=== PATIENT | female | born 1985 | race African-American/Black ===

== ENCOUNTER 2016-06-19 20:35 | Emergency (ER) | payer OTHER ==
[2016-06-19 20:46] VITALS: BP 128/70; PULSE 139; TEMP 99; BMI 37.9
--- NOTE | 2016-06-19 20:54 | PDOC ---
History of Present Illness - History of Present Illness Initial Comments: 06/19/16 23:23 Patient is a 31 year old female (16 weeks) with significant medical hx of asthma who is presenting to the ED with vaginal bleeding and abdominal cramping for two days. The patient states that her bleeding is as heavy as her past menstrual periods but denies passing any clots. The patient reports she had to wear a pad today. She also endorses some associated abdominal cramping. Denies any fevers, chills, nausea, vomiting, diarrhea, dysuria, or hematuria. Patient was last seen by STRATEGIC DEVELOPMENT MANAGER on 06/15/16. OB/GYB: Kate Mckay MD LNMP: 03/13/16 <Radha Stern - Last Filed: 06/19/16 23:48> <Nicole Pereira - Last Filed: 06/20/16 02:44> - General Chief Complaint: Vaginal Bleeding Stated Complaint: VAGINAL BLEED Time Seen by Provider: 06/19/16 20:52 Past History <Radha Stern - Last Filed: 06/19/16 23:48> - Past Medical History Asthma: Yes Cancer: No Cardiac Disorders: No Diabetes: No HTN: No Seizures: No Thyroid Disease: No - Psycho/Social/Smoking Cessation Hx Suicidal Ideation: No Smoking Status: No Smoking History: Never smoked Have you smoked in the past 12 months: No Number of Cigarettes Smoked Daily: 0 Information on smoking cessation initiated: No Hx Alcohol Use: No Drug/Substance Use Hx: No Hx Substance Use Treatment: No <Nicole Pereira - Last Filed: 06/20/16 02:44> - Past Medical History Allergies/Adverse Reactions: Allergies Allergy/AdvReac Type Severity Reaction Status Date / Time No Known Allergies Allergy Verified 06/19/16 20:44 Home Medications: Ambulatory Orders Albuterol Sulfate Inhaler - [Ventolin HFA Inhaler -] 1 - 2 inh PO QID #1 inhaler 10/24/15 Review of Systems - Review of Systems Comments:: 06/19/16 23:23 CONSTITUTIONAL: Absent: fever, chills, diaphoresis, generalized weakness, malaise, loss of appetite HEENT: Absent: rhinorrhea, nasal congestion, throat pain, throat swelling, difficulty swallowing, mouth swelling, ear pain, eye pain, visual changes CARDIOVASCULAR: Absent: chest pain, syncope, palpitations, irregular heart rate, lightheadedness , peripheral edema RESPIRATORY: Absent: cough, shortness of breath, dyspnea with exertion, orthopnea, wheezing, stridor, hemoptysis GASTROINTESTINAL: Present: abdominal cramping Absent: abdominal distension, nausea, vomiting, diarrhea, constipation, melena, hematochezia GENITOURINARY: Present: vaginal bleeding Absent: dysuria, frequency, urgency, hesitancy, hematuria, flank pain, genital pain MUSCULOSKELETAL: Absent: myalgia, arthralgia, joint swelling SKIN: Absent: rash, itching, pallor HEMATOLOGIC/IMMUNOLOGIC: Absent: easy bleeding, easy bruising, lymphadenopathy, frequent infections ENDOCRINE: Absent: unexplained weight gain, unexplained weight loss, heat intolerance, cold intolerance NEUROLOGIC: Absent: headache, focal weakness or paresthesia, dizziness, unsteady gait, seizure, mental status changes, bladder or bowel incontinence. PSYCHIATRIC: Absent: anxiety, depression, suicidal or homicidal ideation, hallucinations <Radha Stern - Last Filed: 06/19/16 23:48> *Physical Exam - Vital Signs Last Vital Signs Temp Pulse Resp BP Pulse Ox 99 F 139 H 24 128/70 99 06/19/16 20:44 06/19/16 20:44 06/19/16 20:44 06/19/16 20:44 06/19/16 20:44 - Physical Exam Comments: 06/19/16 23:25 GENERAL: Well developed, well nourished. Awake and alert. No acute distress. HEENT: Normocephalic, atraumatic. PERRLA, EOMI. No conjunctival pallor. Sclera are non- icteric. Moist mucous membranes. Oropharynx is clear. NECK: Supple. Full ROM. No JVD. Carotid pulses 2+ and symmetric, without bruits. No thyromegaly. No lymphadenopathy. CARDIOVASCULAR: Regular rate and rhythm. No murmurs, rubs, or gallops. Distal pulses are 2+ and symmetric. PULMONARY: No evidence of respiratory distress. Lungs clear to auscultation bilaterally. No wheezing, rales or rhonchi. ABDOMINAL: Protuberant. Soft. Non-tender. Non-distended. No rebound or guarding. No organomegaly. Normoactive bowel sounds. MUSCULOSKELETAL: Normal range of motion at all joints. No bony deformities or tenderness. No CVA tenderness. EXTREMITIES: No cyanosis. No clubbing. No edema. No calf tenderness. SKIN: Warm and dry. Normal capillary refill. No rashes. No jaundice. NEUROLOGICAL: Alert, awake, appropriate. Cranial nerves 2-12 intact. Normal speech. Gait is normal without ataxia. PSYCHIATRIC: Cooperative. Good eye contact. Appropriate mood and affect. <Radha Stern - Last Filed: 06/19/16 23:48> - Vital Signs Last Vital Signs Temp Pulse Resp BP Pulse Ox 99 F 139 H 24 128/70 99 06/19/16 20:44 06/19/16 20:44 06/19/16 20:44 06/19/16 20:44 06/19/16 20:44 <Nicole Pereira - Last Filed: 06/20/16 02:44> ED Treatment Course - LABORATORY CBC & Chemistry Diagram: 06/19/16 21:15 - ADDITIONAL ORDERS Additional order review: Laboratory Results 06/19/16 21:15 Urine Color Ltyellow Urine Appearance Clear Urine pH 6.0 Ur Specific [place] 1.008 Urine Protein 1+ H Urine Glucose (UA) Negative Urine Ketones Negative Urine Blood 3+ H Urine Nitrite Negative Urine Bilirubin Negative Urine Urobilinogen Negative Ur Leukocyte Esterase Negative Urine RBC 186 Urine WBC 4 Ur Epithelial Cells Rare Urine Mucus Rare 06/19/16 21:15 RBC 3.49 L MCV 98.6 H MCHC 33.2 RDW 12.9 MPV 9.1 Neutrophils % 64.2 D Lymphocytes % 26.9 D Monocytes % 6.3 Eosinophils % 1.9 D Basophils % 0.7 D - RADIOLOGY Radiograph Interpretation: 06/19/16 23:48 Obstetrical US Impression: Single live intrauterine with average sonographic gestational age of 14 weeks 1 day. Posterior placenta covering the internal cervical os consistent with placenta previa. Close follow-up is needed. Reported By: Marixa Nichols MD <Radha Stern - Last Filed: 06/19/16 23:48> - LABORATORY CBC & Chemistry Diagram: 06/19/16 21:15 <Nicole Pereira - Last Filed: 06/20/16 02:44> Medical Decision Making - Medical Decision Making 06/20/16 02:43 40-year-old female who is , developed some vaginal bleeding. Ultrasound showed placenta previa with a single live intrauterine 14 weeks. heart tones 159 beats per minute Patient required program Plan she does have an appointment with Dr. Hartmann this week <Nicole Pereira - Last Filed: 06/20/16 02:44> *DC/Admit/Observation/Transfer - Attestations Scribe Attestion: 06/19/16 23:25 Documentation prepared by Radha Stern, acting as medical record specialist for Nicole Pereira MD. <Radha Stern - Last Filed: 06/19/16 23:48> <Nicole Pereira - Last Filed: 06/20/16 02:44> Diagnosis at time of Disposition: Placenta previa Qualifiers: Trimester: second trimester Qualified Code(s): O44.02 - Complete placenta previa NOS or without hemorrhage, second trimester - Discharge Dispostion Disposition: HOME Condition at time of disposition: Stable - Referrals Referrals: Kate Mckay MD [Staff Physician] - - Patient Instructions Printed Discharge Instructions: DI for Placenta Previa Additional Instructions: It is important to see your foreign exchange dealer this week Please call Dr Mckay and see if she can see you earlier than scheduled Bed rest
[2016-06-19 21:37] LABS: BASOPHIL 0.7 % (0-2.0); EOSINOPHIL 1.9 % (0-4.5); MCH 32.7 pg (25.7-33.7); MCHC 33.2 g/dl (32.0-36.0); MEAN CELL VOLUME 98.6 fl (80-96); MEAN PLT VOLUME 9.1 fl (7.5-11.1); NEUTROPHILS 64.2 % (42.8-82.8); PLATELET COUNT 198 K/MM3 (134-434); RDW 12.9 % (11.6-15.6); WHITE BLOOD COUNT 9.9 K/mm3 (4.0-10.0)
[2016-06-19 21:38] LABS: URINE APPEARANCE CLEAR; URINE BILIRUBIN NEGATIVE (NEGATIVE); URINE COLOR LTYELLOW; URINE GLUCOSE (UA) NEGATIVE (NEGATIVE); URINE KETONE NEGATIVE (NEGATIVE); URINE LEUK ESTERASE NEGATIVE (NEGATIVE); URINE NITRITE NEGATIVE (NEGATIVE); URINE UROBILINOGEN NEGATIVE E.U./dl (0.2-1.0)
[2016-06-19 22:20] LABS: URINE BLOOD 3+ (NEGATIVE); URINE PROTEIN 1+ (NEGATIVE)
[2016-06-19] MEDS ORDERED: RHO(D) IMMUNE GLOBULIN 1,500 UNIT DISP.SYRIN IM ONE (23:06)
[2016-06-19 23:14] LABS: URINE MUCUS RARE; URINE RBC 186 /hpf (0-3); URINE WBC 4 /hpf (3-5)
== END 2016-06-20 00:43 | disposition home or self-care (01) ==
LOC: JER 20:35
PROC: 3E0234Z Introduction of Serum, Toxoid and Vaccine into Muscle, Percutaneous Approach (ICD-10-PCS; principal; 2016-06-19)
DX: O44.12 Complete placenta previa with hemorrhage, second trimester (principal); Z3A.14 14 weeks gestation of pregnancy
CPT/HCPCS: 36415; 76816-TC; 81003; 81015; 85025; 86850; 86900; 86901; 86999; 96372; 99283-25; J1561

== ENCOUNTER 2016-12-15 23:55 | Inpatient (IN) | payer OTHER ==
[~2016-12-15 23:55] MED LIST: DEXTROSE 5%-LACTATED RINGERS 1,000 ML IV SCH
[2016-12-16] MEDS ORDERED: BUTORPHANOL TARTRATE 1 MG/ML VIAL IVPUSH PRN (01:01)
[2016-12-16] MEDS ORDERED: PROMETHAZINE HCL 25 MG/1 ML VIAL IVPUSH PRN (01:01)
[2016-12-16 01:08] LABS: INR 0.93 (0.82-1.09); PROTHROMBIN TIME (PATIENT) 10.5 SEC (9.98-11.88)
[2016-12-16 01:10] LABS: ACTIVATED PTT 28.6 SECONDS (26.9-34.4)
[2016-12-16 01:16] LABS: ANION GAP 10 (8-16); CO2 24 mmol/L (21-32); CREATININE 0.6 mg/dL (0.55-1.02); GLUCOSE,RANDOM 85 mg/dL (74-106)
[2016-12-16 01:39] LABS: HIV 1 & 2 AB NEGATIVE; HIV 1 AGp24 NEGATIVE
[2016-12-16 01:46] VITALS: BMI 40.1
[2016-12-16 01:50] LABS: BASOPHIL 0.3 % (0-2.0); MCH 32.1 pg (25.7-33.7); MCHC 33.6 g/dl (32.0-36.0); MEAN CELL VOLUME 95.6 fl (80-96); MEAN PLT VOLUME 9.2 fl (7.5-11.1); NEUTROPHILS 73.3 % (42.8-82.8); PLATELET COUNT 215 K/MM3 (134-434); RDW 13.5 % (11.6-15.6); WHITE BLOOD COUNT 11.4 K/mm3 (4.0-10.0)
--- NOTE | 2016-12-16 01:59 | HP ---
Past Medical History - Admission Chief Complaint: Labor pain History of Present Illness: 31 yo @ 39 weeks gestation admitted due to contractions pain. She denies any vaginal bleeding nor rupture of membrane. History Source: Patient Limitations to Obtaining History: No Limitations - Past Medical History ...: 4 ...Para: 2 ...Term: 2 ...: 0 ...Spon : 0 ...Induced : 1 ...LMP: 03/14/16 ... Weeks Gestation by Dates: 39.6 ...EDC by Dates: 12/19/16 ...EDC by Sono: 12/22/16 - Past Surgical History Past Surgical History: Yes: None Hx Myomectomy: No Hx Transabdominal Cerclage: No - Smoking History Smoking history: Former smoker Have you smoked in the past 12 months: Yes Aproximately how many cigarettes per day: 8 If you are a former smoker, when did you quit?: During 1st trimester of - Alcohol/Substance Use Hx Alcohol Use: No - Social History History of Recent Travel: No Home Medications - Allergies Allergies/Adverse Reactions: Allergies Allergy/AdvReac Type Severity Reaction Status Date / Time No Known Allergies Allergy Verified 12/10/16 23:34 - Home Medications Home Medications: Ambulatory Orders Albuterol Sulfate Inhaler - [Ventolin HFA Inhaler -] 1 puff PRN PRN 12/11/16 Family Disease History - Family Disease History Family History: Unremarkable Review of Systems - Review of Systems Constitutional: reports: No Symptoms Eyes: reports: No Symptoms HENT: reports: No Symptoms Neck: reports: No Symptoms Cardiovascular: reports: No Symptoms Respiratory: reports: No Symptoms Gastrointestinal: reports: No Symptoms Genitourinary: reports: Pain Breasts: reports: No Symptoms Reported Musculoskeletal: reports: No Symptoms Integumentary: reports: No Symptoms Neurological: reports: No Symptoms Endocrine: reports: No Symptoms Hematology/Lymphatic: reports: No Symptoms Psychiatric: reports: No Symptoms Pain Intensity: 4 Physical Exam - Maternity Vital Signs: Vital Signs Temperature 97.9 F 12/16/16 01:43 EDT Pulse Rate 86 12/16/16 01:43 EDT Respiratory Rate 20 12/16/16 01:43 EDT Blood Pressure 127/78 12/16/16 01:43 EDT O2 Sat by Pulse Oximetry (%) Constitutional: Yes: Well Nourished Eyes: Yes: WNL HENT: Yes: Atraumatic Neck: Yes: Supple Cardiovascular: Yes: Regular Rate and Rhythm Lungs: Clear to auscultation - Abdominal Exam/OB Number of Fetuses: Single Presentation: Vertex Contractions: Yes Regularity: Regular - Vaginal Exam/OB Station: -2 - Physical Exam Musculoskeletal: Yes: WNL Integumentary: Yes: WNL ...Motor Strength: WNL Psychiatric: Yes: Alert, Oriented - Labs Lab Results: CBC, BMP 12/16/16 01:20 EST Assessment/Plan IUP @ 39 weeks Pain in labor Anticipate
[2016-12-16] MEDS ORDERED: DEXTROSE 5%-LACTATED RINGERS 1,000 ML IV SCH (02:00)
[2016-12-16] MEDS ORDERED: BENZOCAINE 20% 57 GM BOTTLE TP PRN (05:13)
[2016-12-16] MEDS ORDERED: BENZOCAINE 28 GM HEMORRHOIDAL OINTMENT TP PRN (05:13)
[2016-12-16] MEDS ORDERED: METHYLERGONOVINE MALEATE 0.2 MG/1 ML AMP IM PRN (05:13)
[2016-12-16] MEDS ORDERED: WITCH HAZEL 50% (TUCKS) 40 PAD/JAR PAD TP PRN (05:13)
[2016-12-16] MEDS ORDERED: BISACODYL 10 MG SUPP.RECT RC PRN (05:13)
--- NOTE | 2016-12-16 05:23 | PN ---
Delivery - Delivery Vaginal Delivery: Spontaneous Episiotomy/Laceration: None EBL (cc): 300 Delivery, Single - Feeding Plan Initial Plan: Elected not to breastfeed exclusively throughout hospitalization Remarks - Remarks Remarks: Normal spontaneous vaginal delivery of a live infant girl over intact perineum. Nose / Oropharynx suctioned @ perineum. Cord clamped and cut. Placenta expelled spontaneously intact.
[2016-12-16] MEDS: ACETAMINOPHEN 325 MG TABLET (FP) PO PRN ×4 (06:15→21:42)
[2016-12-16] MEDS: IBUPROFEN 600 MG TABLET (FP) PO PRN ×4 (06:15→21:43)
[2016-12-16] MEDS: OXYTOCIN 20 UNITS in 0.9% NS 1,000 ML IV SCH ×2 (06:35→12:00)
[2016-12-16] MEDS ORDERED: TUBERCULIN PPD 5 TU/0.1ML SYRINGE (IN PATIENT USE ONLY) ID ONE (09:00)
[2016-12-16] MEDS: FERROUS SO4 325 MG TABLET (FP) PO SCH ×3 (09:09→16:55)
[2016-12-16] MEDS: PRENATAL VITAMINS W/ FOLIC ACID TABLET (FP) PO SCH (09:09)
[2016-12-17 07:40] LABS: BASOPHIL 0.7 % (0-2.0); MCH 32.2 pg (25.7-33.7); MCHC 33.7 g/dl (32.0-36.0); MEAN CELL VOLUME 95.7 fl (80-96); MEAN PLT VOLUME 8.5 fl (7.5-11.1); NEUTROPHILS 65.6 % (42.8-82.8); PLATELET COUNT 199 K/MM3 (134-434); RDW 13.3 % (11.6-15.6); WHITE BLOOD COUNT 11.3 K/mm3 (4.0-10.0)
--- NOTE | 2016-12-17 07:44 | PN ---
Post Note - Post Date of Delivery: 12/16/16 Vital Signs: Vital Signs - 24 hr 12/16/16 12/16/16 12/16/16 14:00 18:00 22:00 Temperature 97.7 F 97.6 F 97.7 F Pulse Rate 76 83 84 Respiratory 20 20 18 Rate Blood Pressure 139/92 131/84 123/78 12/17/16 12/17/16 02:00 05:53 Temperature 98.6 F 97.8 F Pulse Rate 71 67 Respiratory 18 18 Rate Blood Pressure 100/58 112/70 Labs: Laboratory Results - last 24 hr 12/16/16 12/16/16 01:20 EST 05:50 RPR Titer Nonreactive Screen Negative Baby's Blood Type O positive Unit Expiration Date - Subjective Subjective: No Complaints, Ambulating - Objective Breast: Not engorged Abdomen: Soft, Non-tender Uterus: Fundus firm Vagina: Scant lochia Extremities: Non-tender - Assessment/Plan (1) Vaginal delivery Assessment: S/P Normal Plan: Routine Care
[2016-12-17] MEDS: FERROUS SO4 325 MG TABLET (FP) PO SCH ×4 (08:58→16:34)
[2016-12-17] MEDS: PRENATAL VITAMINS W/ FOLIC ACID TABLET (FP) PO SCH (09:29)
[2016-12-17] MEDS ORDERED: FLU VACCINE QUAD 60 MCG/0.5 ML (MDV 17-18) IM ONE (10:00)
[2016-12-17] MEDS ORDERED: PNEUMOCOCCAL 23 VACCINE 0.5 ML VIAL IM ONE (10:00)
[2016-12-17] MEDS ORDERED: PNEUMOC 13-VAL CONJ-DIP CRM/PF 0.5 ML DISP.SYRIN IM ONE (10:00)
[2016-12-17] MEDS ORDERED: DIPHTH,PERTUSS(ACELL),TET 0.5 ML DISP.SYRIN IM ONE (10:00)
[2016-12-17] MEDS: ACETAMINOPHEN 325 MG TABLET (FP) PO PRN ×2 (16:59→22:59)
[2016-12-17] MEDS: IBUPROFEN 600 MG TABLET (FP) PO PRN ×2 (16:59→22:59)
[2016-12-17] MEDS ORDERED: SENNOSIDES/DOCUSATE COMBO (SENNA PLUS) TABLET (UD) PO PRN (22:00)
[2016-12-17 22:07] VITALS: PULSE 71
--- NOTE | 2016-12-18 08:28 | DS ---
Physical Exam-CLINICAL PHARMACY MANAGER Vital Signs: Vital Signs Temperature 97.9 F 12/17/16 22:00 Pulse Rate 71 12/17/16 22:00 Respiratory Rate 18 12/17/16 22:00 Blood Pressure 121/75 12/17/16 22:00 O2 Sat by Pulse Oximetry (%) 96 12/16/16 07:00 Constitutional: Yes: Well Nourished Eyes: Yes: Conjunctiva Clear HENT: Yes: Atraumatic Neck: Yes: Supple, Trachea Midline Cardiovascular: Yes: Regular Rate and Rhythm Respiratory: Yes: Regular, CTA Bilaterally Gastrointestinal: Yes: Normal Bowel Sounds Vaginal Exam: Yes: Normal Cervix: Yes: Normal Uterus: Yes: Firm ....Post : Yes: Uterus firm, Moderate lochia serosa Neurological: Yes: Alert, Oriented Psychiatric: Yes: Alert, Oriented Labs: CBC, BMP 12/17/16 05:45 Delivery - Delivery Vaginal Delivery: Spontaneous Type of Anesthesia: None Episiotomy/Laceration: None EBL (cc): 300 Delivery, Single - Stages of Labor Date 1st Stage Initiatied: 12/15/16 Time 1st Stage Initiated: 20:00 Date 2nd Stage Initiated: 12/16/16 Time 2nd Stage Initiated: 04:55 Date of Delivery: 12/16/16 Time of Delivery: 04:59 Time Placenta Delivered: 05:05 - Condition of Infant Bike Mechanic/Care Advocate Present: No Infant Gender: Female Weight: 7 lb 15 oz Position: Left, OA Total Hours ROM (Hrs/Mins): 3hrs/14mins - 1 Minute Total Score: 9 5 Minutes Total Score: 9 - Feeding Plan Initial Plan: Elected not to breastfeed exclusively throughout hospitalization Discharge Summary Reason For Visit: INDUCTION Current Active Problems Status post vaginal delivery (Acute) Procedures: Principal: Normal spontaneous vaginal delivery Hospital Course: Routine care Condition: Good - Instructions Diet, Activity, Other Instructions: Regular diet No douching, no sexual activity x 6 weeks F/U with MD in 6 weeks Disposition: HOME - Home Medications Comprehensive Discharge Medication List: Ambulatory Orders Albuterol Sulfate Inhaler - [Ventolin HFA Inhaler -] 1 puff PRN PRN 12/11/16
[2016-12-18 08:30] VITALS: BP 123/81; TEMP 99
[2016-12-18] MEDS: FERROUS SO4 325 MG TABLET (FP) PO SCH (09:09)
[2016-12-18] MEDS: PRENATAL VITAMINS W/ FOLIC ACID TABLET (FP) PO SCH (09:09)
== END 2016-12-18 10:10 | disposition home or self-care (01) | DRG 560 ==
LOC: JLDR 23:55 → J3W 12-16 07:23
PROVIDERS: ADMIT Obstetrics & Gynecology; ATTEND Obstetrics & Gynecology
PROC: 10E0XZZ Delivery of Products of Conception, External Approach (ICD-10-PCS; principal; 2016-12-16)
DX: O80 Encounter for full-term uncomplicated delivery (principal); Z3A.39 39 weeks gestation of pregnancy; Z37.0 Single live birth
CPT/HCPCS: 36415; 59409; 80048; 85025; 85461; 85610; 85730; 86593; 86850; 86900; 86901; 86999; 87389; 90688; 90715; 90732; G0008; G0009

== ENCOUNTER 2018-12-22 03:40 | Emergency (ER) | payer OTHER ==
--- NOTE | 2018-12-22 04:41 | PDOC ---
History of Present Illness - General Chief Complaint: Cold Symptoms Stated Complaint: S.O.B. Time Seen by Provider: 12/22/18 04:41 History Source: Patient Exam Limitations: No Limitations - History of Present Illness Initial Comments: Pt is a 33 yo F, with PMH of asthma (takes albuterol PRN and steroids "when sick ") who is presenting with cough x2 weeks, now productive of blood mixed in sputum since today. Pt states she has had a cough for "about 2 weeks," which became productive ~1.5 weeks ago. Pt went to [facility] at that time, where she was provided "breathing treatments" and discharged "with a few days of steroids". Pt states this minimally improved her symptoms, and has required albuterol PRN 1-2 x/day. Pt came to the ER today because "I now have pain in my back with coughing" and had blood mixed into the sputum today. Pt denies any fevers/chills, headache, vision changes, syncope, chest pain, palpitations, nausea/vomiting, abdominal pain, urinary symptoms, diarrhea/constipation, or leg swelling. Allergies: NKDA PCP: Princess Social: Pt smokes 1/2 ppd. Pt endorses past use of THC, but denies current use or vaping. Denies any alcohol use. Pt denies any recent travel or sick contacts. Lives in an apartment alone. Surgical: no relevant history. Family: no relevant history. 12/22/18 05:19 Past History - Travel Traveled outside of the country in the last 30 days: No Close contact w/someone who was outside of country & ill: No - Past Medical History Allergies/Adverse Reactions: Allergies Allergy/AdvReac Type Severity Reaction Status Date / Time No Known Allergies Allergy Verified 12/22/18 04:43 Home Medications: Ambulatory Orders Albuterol Sulfate Inhaler - [Ventolin HFA Inhaler -] 1 puff PRN PRN 12/11/16 Azithromycin [Zithromax 250mg Tablets -] 250 mg PO UTDICT #6 tab 12/22/18 Asthma: Yes (last attack months ago) Cancer: No Cardiac Disorders: No Diabetes: No (abnormal 1hr gtt normal 3hr) HTN: No Seizures: No Thyroid Disease: No - Reproductive History (#): 3 Para: 2 - Psycho Social/Smoking Cessation Hx Smoking Status: No Smoking History: Former smoker Have you smoked in the past 12 months: Yes Number of Cigarettes Smoked Daily: 8 If you are a former smoker, when did you quit?: During 1st trimester of Hx Alcohol Use: No Drug/Substance Use Hx: No Hx Substance Use Treatment: No Respiratory Specific PMHX - Complaint Specific PMHX Hx Asthma: Yes Hx Intubation: No Hx Bronchitis: No Hx Pneumonia: No Hx Pulmonary Embolus: No Hx TB (Tuberculosis): No Hx Angina: No Review of Systems - Review of Systems Able to Perform ROS?: Yes Is the patient limited Lao proficient: No Constitutional: Yes: Weight Stable. No: Chills, Diaphoresis, Fever, Loss of Appetite, Malaise, Night Sweats, Weakness HEENTM: No: Recent change in vision, Nose Congestion, Throat Pain, Throat Swelling, Difficulty Swallowing Respiratory: Yes: Cough, Productive cough, Hemoptysis (blood mixed into sputum today). No: Orthopnea, Shortness of Breath, SOB with Exertion, SOB at Rest, Wheezing Cardiac (ROS): Yes: Chest Tightness. No: Chest Pain, Edema, Irregular Heart Rate, Lightheadedness, Palpitations, Syncope ABD/GI: No: Constipated, Diarrhea, Nausea, Poor Appetite, Poor Fluid Intake, Vomiting : No: Burning, Dysuria, Frequency, Pain, Urgency Musculoskeletal: Yes: Back Pain (with coughing ). No: Muscle Pain, Muscle Weakness, Neck Pain Integumentary: No: Rash Neurological: No: Headache, Numbness, Weakness, Dizziness Psychiatric: No: Sleep Pattern Change, Change in Appetite Endocrine: No: Increased Urine, Change in Weight Hematologic/Lymphatic: No: Anemia, Blood Clots, Easy Bleeding, Easy Bruising All Other Systems: Reviewed and Negative *Physical Exam - Physical Exam Comments: Vitals stable, pt afebrile. Pt in NAD, ambulatory in ED and waiting room, holding chest when examiner enters the room. Obese body habitus. Pt alert and oriented x3. works manager generally intact, muscular strength and sensation intact. No midline spinal tenderness, step-offs, or crepitus. Head normocephalic, atraumatic. Eyes PERRLA, EOMI. Oropharynx without erythema or exudates, no LAD b/l. No nasal congestion. Hearing intact. Clear heart sounds, S1/S2, no JVD, b/l pedal edema, or heart murmur. Mild expiratory wheezing b/l bases, no focal areas of consolidation. No reproducible chest wall TTP. No abdominal or CVA tenderness to palpation, no rebound, no guarding. Abdomen soft, non-distended, and with normoactive bowel sounds. Skin without jaundice or rash. 12/22/18 05:24 Medical Decision Making - Medical Decision Making Pt was seen at bedside, also will be seen by attending Dr. Simpson. Pt presenting with back pain and cough x2 weeks, now with blood mixed into sputum, likely from chronic cough 2/2 URI. Will evaluate for pneumonia with chest x-ray, and will obtain ECG to look for pericarditis. Pt has no known exposures to TB, no recent fevers or weight loss, currently afebrile, no recent travel and lives alone. Provided 650 mg PO tylenol, duonebs, and 10 mg PO decadron for improvement of lung inflammation, pain, and wheezing. Will continue to reassess pt and monitor for symptomatic improvement. 12/22/18 05:25 Upreg negative. Pt continues to complain of pain, providing PO motrin. Pt took off mask during first breathing treatment and did not receive any medication. 12/22/18 05:41 ECG: NSR, intervals WNL (HR 89, [place] 156, QRS 102, QTc 450). No TWIs or significant ST segment changes. No significant changes from prior ECG (10/23/2015 ). 12/22/18 05:57 X-ray shows no acute pathology, but will treat with z-pack due to pt duration of symptoms. Lungs CTAB, no wheezing after duoneb treatments Pt can d/c to home with PCP f/u. 12/22/18 06:53 Discharge - Discharge Information Problems reviewed: Yes Clinical Impression/Diagnosis: Bronchitis Asthma Qualifiers: Asthma severity: mild Asthma persistence: intermittent Asthma complication type : with acute exacerbation Qualified Code(s): J45.21 - Mild intermittent asthma with (acute) exacerbation Condition: Good Disposition: HOME - Admission No - Follow up/Referral Referrals: Cassie Sánchez [Primary Care Provider] - - Patient Discharge Instructions Patient Printed Discharge Instructions: DI for Asthma -- Adult, DI for Acute Bronchitis Additional Instructions: You were seen in the ER today for cough. We provided you with pain medication, breathing treatments, and steroids. Please follow-up with your primary care doctor within 1-2 days to discuss your visit and make sure your symptoms have improved. Please return to the ER if you have any worsening pain, development of fevers or chills, loss of consciousness, inability to tolerate food or fluids , or any other concerns. I have sent medications to your pharmacy. Please take these medications as prescribed. - Post Discharge Activity
[2018-12-22 04:43] VITALS: BMI 37.5
[2018-12-22] MEDS ORDERED: DEXAMETHASONE LIQUID 0.5 MG/5 ML PO ONE (04:55)
[2018-12-22] MEDS ORDERED: ACETAMINOPHEN 325 MG TABLET (FP) PO ONE (05:00)
[2018-12-22] MEDS ORDERED: ACETAMINOPHEN 325 MG TABLET (FP) ONE (05:10)
[2018-12-22] MEDS ORDERED: DEXAMETHASONE SOD PHOSPHATE 10 MG/1 ML VIAL ONE (05:10)
[2018-12-22] MEDS ORDERED: ALBUTEROL SO4 2.5/IPRATROPIUM 0.5 INH SOL 3 ML VIAL.NEB. NEB ONE (05:11)
[2018-12-22] MEDS: ALBUTEROL SO4 2.5/IPRATROPIUM 0.5 INH SOL 3 ML VIAL.NEB. NEB SCH ×3 (05:21→06:06)
--- NOTE | 2018-12-22 05:37 | PDOC ---
Attending Attestation - Resident Resident Name: QueenieSandhya - ED Attending Attestation I have performed the following: I have examined & evaluated the patient, The case was reviewed & discussed with the resident, I agree w/resident's findings & plan, Exceptions are as noted - HPI HPI: 12/22/18 05:33 33 F with h/o asthma presenting to ED with cough x 2 weeks. Pt notes that it has been productive of pink sputum in the past few days. Pt was initially evaluated at [facility] and was given nebs and steroids. This helped initially, but pt states that the cough returned. She denies F/C. Denies CP but reports back pain with coughing. Denies leg swelling. Denies recent travel/ immobilization. - Physicial Exam PE: 12/22/18 05:35 "GENERAL: Awake, alert, and fully oriented, in no acute distress. HEAD: No signs of trauma EYES: PERRLA, EOMI, sclera anicteric, conjunctiva clear ENT: Auricles normal inspection, hearing grossly normal, nares patent, oropharynx clear without exudates. Moist mucosa NECK: Nontender, no stepoffs, Normal ROM, supple, no lymphadenopathy, JVD, or masses LUNGS: + mild expiratory wheezing bilaterally HEART: Regular rate and rhythm, normal S1 and S2, no murmurs, rubs or gallops ABDOMEN: Soft, nontender, normoactive bowel sounds. No guarding, no rebound. No masses EXTREMITIES: Normal range of motion, no edema. No clubbing or cyanosis. No cords, erythema, or tenderness NEUROLOGICAL: Cranial nerves II through XII intact. 5/5 strength and sensation in all extremities, Normal speech, normal gait, normal cerebellar function SKIN: Warm, Dry, normal turgor, no rashes or lesions noted. - Medical Decision Making 12/22/18 05:36 33 F with cough x 2 weeks. Likely asthma vs bronchitis. Pt with mild wheezing on exam. EKG unremarkable. PERC score 0. - CXR - Nebs, steroids - Start on empiric abx 12/22/18 06:50 CXR clear on my read Pt reassessed - lung sounds better Pt reports improvement in cough. Will DC with nebs and z-pack Pt is well appearing, with normal vitals. Clinically stable for DC at this time. I discussed the physical exam findings, ancillary test results and final diagnoses with the patient. I answered all of the patient's questions. The patient was satisfied with the care received and felt comfortable with the discharge plan and treatment plan. The patient agrees to follow up with the primary care physician within 24-72 hours.
[2018-12-22] MEDS ORDERED: IBUPROFEN 400 MG TABLET (FP) PO ONE (05:41)
[2018-12-22 06:18] VITALS: BP 117/87; PULSE 88; TEMP 98.1
--- NOTE | 2018-12-22 10:00 | EKG ---
Test Reason : Blood Pressure : / mmHG Vent. Rate : 089 BPM Atrial Rate : 089 BPM P-R Int : 156 ms QRS Dur : 102 ms QT Int : 370 ms P-R-T Axes : 045 026 035 degrees QTc Int : 450 ms NORMAL SINUS RHYTHM NORMAL ECG WHEN COMPARED WITH ECG OF 23-OCT-2015 23:42, NO SIGNIFICANT CHANGE WAS FOUND Confirmed by AMIRAH SHEPARD MD ([id number]) on 12/22/2018 10:00:18 AM Referred By: Confirmed By:AMIRAH SHEPARD MD
--- NOTE | 2018-12-23 11:26 | EKG ---
Test Reason : Blood Pressure : / mmHG Vent. Rate : 085 BPM Atrial Rate : 085 BPM P-R Int : 162 ms QRS Dur : 092 ms QT Int : 382 ms P-R-T Axes : 049 026 032 degrees QTc Int : 454 ms NORMAL SINUS RHYTHM NORMAL ECG WHEN COMPARED WITH ECG OF 22-DEC-2018 05:37, NO SIGNIFICANT CHANGE WAS FOUND Confirmed by MD Turcios Edward ([id number]) on 12/23/2018 11:26:24 AM Referred By: Confirmed By:Ramone Turcios MD
== END 2018-12-22 07:29 | disposition home or self-care (01) ==
LOC: JER 03:40
PROC: 3E0F7GC Introduction of Other Therapeutic Substance into Respiratory Tract, Via Natural or Artificial Opening (ICD-10-PCS; principal; 2018-12-22)
DX: J45.21 Mild intermittent asthma with (acute) exacerbation (principal); J40 Bronchitis, not specified as acute or chronic
CPT/HCPCS: 71046-TC-FY; 84703; 93005; 93010; 94640; 99282-25

== ENCOUNTER 2022-08-28 14:08 | Observation (INO) | payer OTHER ==
[2022-08-28 15:36] LABS: BASO % 0.4 % (0-2.0); EOS % 1.9 % (0-4.5); HEMATOCRIT 20.8 % (32.4-45.2); HEMOGLOBIN 7.1 GM/dL (10.7-15.3); LYMPH % 43.8 % (8-40); MCH 36.5 pg (25.7-33.7); MEAN CELL VOLUME 107.2 fl (80-96); MEAN PLT VOLUME 7.9 fl (7.5-11.1); MONO % 2.4 % (3.8-10.2); NEUT % 51.5 % (42.8-82.8); PLATELET COUNT 128 10^3/uL (134-434); RBC 1.94 M/mm3 (3.60-5.2); RDW 22.7 % (11.6-15.6); WHITE BLOOD COUNT 4.4 K/mm3 (4.0-10.0)
[2022-08-28 15:42] LABS: INR 1.16 (0.83-1.09); PROTHROMBIN TIME (PATIENT) 13.4 SEC (9.7-13.0)
[2022-08-28 15:44] LABS: ACTIVATED PTT 28.9 SECONDS (25.2-36.5)
[2022-08-28] MEDS ORDERED: ONDANSETRON 4 MG/2 ML VIAL ONE (15:49)
[2022-08-28 15:52] LABS: ANISOCYTOSIS 2+; MACROCYTOSIS 2+
[2022-08-28] MEDS ORDERED: ONDANSETRON 4 MG/2 ML VIAL IVPUSH ONE (15:52)
[2022-08-28 15:53] LABS: POTASSIUM 3.6 mmol/L (3.5-5.1)
[2022-08-28 15:54] LABS: CALCIUM 8.9 mg/dL (8.5-10.1)
[2022-08-28] MEDS ORDERED: SODIUM CHLORIDE 0.9% 500 ML INFUS.BAG IV ONE (15:55)
[2022-08-28 15:56] LABS: ALBUMIN 3.7 g/dl (3.4-5.0); BLOOD UREA NITROGEN 9.3 mg/dL (7-18)
[2022-08-28 15:59] LABS: CREATININE 0.9 mg/dL (0.55-1.3); TOT PROT 7.3 g/dl (6.4-8.2)
[2022-08-28] MEDS ORDERED: ALBUTEROL SO4 HFA INHALER IH PRN (20:49)
[2022-08-28 21:57] LABS: BASO % 0.2 % (0-2.0); EOS % 1.4 % (0-4.5); HEMATOCRIT 24.3 % (32.4-45.2); HEMOGLOBIN 8.3 GM/dL (10.7-15.3); LYMPH % 41.5 % (8-40); MCH 34.8 pg (25.7-33.7); MCHC 34.2 g/dl (32.0-36.0); MEAN CELL VOLUME 101.8 fl (80-96); MEAN PLT VOLUME 8.8 fl (7.5-11.1); MONO % 1.7 % (3.8-10.2); NEUT % 55.2 % (42.8-82.8); PLATELET COUNT 122 10^3/uL (134-434); RBC 2.39 M/mm3 (3.60-5.2); RDW 23.9 % (11.6-15.6); WHITE BLOOD COUNT 5.1 K/mm3 (4.0-10.0)
[2022-08-28 22:21] LABS: ADD RBC MORPHOLOGY YES
[2022-08-28 22:38] LABS: PLATELET ESTIMATE DECREASED
[2022-08-29] MEDS ORDERED: ALBUTEROL SO4 0.083% IH SOL 2.5 MG/3 ML VIAL.NEB. NEB PRN (00:49)
[2022-08-29 01:48] VITALS: BMI 46.8
[2022-08-29 09:29] LABS: HEMATOCRIT 22.6 % (32.4-45.2); HEMOGLOBIN 7.9 GM/dL (10.7-15.3); MCH 34.4 pg (25.7-33.7); MCHC 34.9 g/dl (32.0-36.0); MEAN CELL VOLUME 98.6 fl (80-96); MEAN PLT VOLUME 7.8 fl (7.5-11.1); PLATELET COUNT 120 10^3/uL (134-434); RDW 25.6 % (11.6-15.6); WHITE BLOOD COUNT 3.7 K/mm3 (4.0-10.0)
[2022-08-29 09:48] LABS: POTASSIUM 3.6 mmol/L (3.5-5.1)
[2022-08-29 09:53] LABS: BLOOD UREA NITROGEN 8.2 mg/dL (7-18); CALCIUM 8.7 mg/dL (8.5-10.1)
[2022-08-29] MEDS: FAMOTIDINE 20 MG TABLET PO SCH (09:53)
[2022-08-29 09:56] LABS: CREATININE 0.8 mg/dL (0.55-1.3)
[2022-08-29 10:47] LABS: ANISOCYTOSIS 0; MACROCYTOSIS 0; OVALOCYTE 1+
[2022-08-29] MEDS ORDERED: CYCLOBENZAPRINE HCL 10 MG TABLET (FP) PO ONE (11:49)
[2022-08-29] MEDS: ACETAMINOPHEN 1000 MG/100 ML BAG IVPB PRN ×2 (14:09→20:10)
[2022-08-29] MEDS: MONTELUKAST NA 10 MG TABLET PO SCH (22:20)
[2022-08-30 03:25] VITALS: RESP 18
[2022-08-30] MEDS: FAMOTIDINE 20 MG TABLET PO SCH (09:30)
[2022-08-30 11:21] LABS: HEMOGLOBIN 9.7 GM/dL (10.7-15.3); MCH 33.8 pg (25.7-33.7); MCHC 34.8 g/dl (32.0-36.0); MEAN CELL VOLUME 96.9 fl (80-96); PLATELET COUNT 123 10^3/uL (134-434); RBC 2.88 M/mm3 (3.60-5.2); RDW 24.5 % (11.6-15.6); WHITE BLOOD COUNT 4.2 K/mm3 (4.0-10.0)
[2022-08-30 11:44] LABS: POTASSIUM 3.7 mmol/L (3.5-5.1)
[2022-08-30 11:49] LABS: ALBUMIN 3.7 g/dl (3.4-5.0); BLOOD UREA NITROGEN 6.3 mg/dL (7-18); CALCIUM 9.3 mg/dL (8.5-10.1)
[2022-08-30 11:53] LABS: CREATININE 0.7 mg/dL (0.55-1.3)
[2022-08-30 11:54] LABS: BILIRUBIN,TOTAL 1.4 mg/dL (0.2-1); TOT PROT 7.1 g/dl (6.4-8.2)
[2022-08-30] MEDS ORDERED: ACETAMINOPHEN 325 MG TABLET (FP) PO PRN (13:40)
[2022-08-30] MEDS ORDERED: ACETAMINOPHEN 500 MG TABLET (FP) PO PRN (13:41)
[2022-08-30] MEDS: MONTELUKAST NA 10 MG TABLET PO SCH (21:28)
[2022-08-31] MEDS: FAMOTIDINE 20 MG TABLET PO SCH (09:48)
[2022-08-31 11:38] VITALS: BP 122/92; PULSE 82; TEMP 98
== END 2022-08-31 13:25 | disposition home or self-care (01) ==
LOC: JER 14:08 → JERBED 17:40 → J8W 08-29 01:51
PROVIDERS: ADMIT Internal Medicine; ATTEND Family Medicine
PROC: 3E033NZ Introduction of Analgesics, Hypnotics, Sedatives into Peripheral Vein, Percutaneous Approach (ICD-10-PCS; principal; 2022-08-28)
PROC: 3E0F7GC Introduction of Other Therapeutic Substance into Respiratory Tract, Via Natural or Artificial Opening (ICD-10-PCS; 2022-08-28)
PROC: 3E033GC Introduction of Other Therapeutic Substance into Peripheral Vein, Percutaneous Approach (ICD-10-PCS; 2022-08-28)
PROC: 3E0337Z Introduction of Electrolytic and Water Balance Substance into Peripheral Vein, Percutaneous Approach (ICD-10-PCS; 2022-08-28)
DX: D64.9 Anemia, unspecified (principal); N92.0 Excessive and frequent menstruation with regular cycle; Z86.718 Personal history of other venous thrombosis and embolism; J45.909 Unspecified asthma, uncomplicated; F17.210 Nicotine dependence, cigarettes, uncomplicated; E66.01 Morbid (severe) obesity due to excess calories; Z68.42 Body mass index [BMI] 45.0-49.9, adult; Z79.01 Long term (current) use of anticoagulants
CPT/HCPCS: 36415; 36430; 36511; 76856-TC; 80048; 80053; 84703; 85025; 85027; 85610; 85730; 86850; 86900; 86901; 86922; 93005; 93010; 93970-TC; 94640; 96374; 96375; 99285-25; G0378; P9016; P9038; P9058